=== PATIENT | female | born 1955 | race Caucasian/White ===

== ENCOUNTER 2018-01-08 09:25 | Emergency (ER) | payer OTHER ==
[~2018-01-08] VITALS: Ht 152.4 cm; Wt 81.6 kg
[~2018-01-08 09:25] MED LIST: KEFLEX500 MG PO; MOTRIN 600 MG600 MG PO; PERCOCET 325 MG1 TA2 PO; ULTRAM(MONOGRAP50 MG PO
[2018-01-08 10:25] LABS: ABSOLUTE BASOPHIL COUNT 0 /CUMM (0.0-0.2); ABSOLUTE EOSINOPHIL COUNT 0.1 /CUMM (0.0-0.7); ABSOLUTE GRANULOCYTE CT 4.1 /CUMM (1.4-6.5); ABSOLUTE LYMPH COUNT 2.3 /CUMM (1.2-3.4); ABSOLUTE MONOCYTE COUNT 0.7 /CUMM (0.10-0.60); BASOPHIL % 0.4 % (0.0-2.0); EOSINOPHIL % 1.8 % (0-5); GRANULOCYTE % 55.7 % (42.2-75.2); HEMATOCRIT 35.5 % (37-47); MEAN CORPUSCULAR HGB 30.3 PG (27.0-31.0); MEAN CORPUSCULAR HGB CONC 33.2 G/DL (33.0-37.0); MEAN CORPUSCULAR VOLUME 91.2 FL (81.0-99.0); PLATELET COUNT 218 /CUMM (130-400); RBC DISTRIBUTION WIDTH 12.5 % (11.5-14.5); RED BLOOD CELL CT 3.89 /CUMM (4.20-5.40); WHITE BLOOD CELL COUNT 7.3 /CUMM (4.8-10.8)
--- NOTE | 2018-01-08 10:46 | CT SCAN REPORT ---
EXAMINATION: CT LUMBAR SPINE WITHOUT CONTRAST CLINICAL INFORMATION: Low back pain with radiation to left leg, weakness COMPARISON: None TECHNIQUE: Helical non-contrast CT images were obtained through the lumbar spine and 1.25 and 2.5 mm axial reconstructions were reviewed along with sagittal and coronal MPRs. DLP: 721.5 mGy-cm FINDINGS: There is no acute osseous abnormality. Vertebral alignment is anatomic. Vertebral body heights are maintained. There are multilevel moderate degenerative changes with posterior disc bulges at L2-L3, L3-L4, L4-L5, and L5-S1. Mild multilevel facet arthropathy is noted. At L4-L5, there is moderate to severe spinal canal stenosis related to disc protrusion. Mild to moderate spinal stenosis noted at the other levels. The paraspinous soft tissues are unremarkable. Moderate diverticulosis of the sigmoid colon is present. IMPRESSION: No acute fracture or subluxation of the lumbar spine. Multilevel degenerative changes as above, notably with moderate to severe spinal canal stenosis at L4-L5 likely related to disc disease. This could be better evaluated with MRI. Sigmoid diverticulosis.
[2018-01-08 11:09] VITALS: BP 140/82
--- NOTE | 2018-01-08 11:20 | ED NECK/BACK PAIN COMPLAINT ---
History of Present Illness General Chief Complaint: Low Back Pain/Injury Stated Complaint: BACK PAIN RADIATING INTO L HIP/LEG Source: patient, family, old records Exam Limitations: no limitations Vital Signs & Intake/Output Vital Signs & Intake/Output Vital Signs Date Time Temp Pulse Resp B/P B/P Pulse O2 O2 Flow FiO2 Mean Ox Delivery Rate 01/08 1109 98.0 74 18 140/82 100 Room Air 01/08 1022 Room Air Room Air 01/08 0930 97.2 53 18 143/76 99 Room Air Allergies Coded Allergies: MDX - Itraconazole (From Sporanox) (Severe, RASH, HEADACHE 11/29/13) MDX - Terbinafine (From Lamisil) (Severe, METAL TASTE IN MOUTH 11/29/13) Reconcile Medications Cephalexin (Keflex) 500 MG CAP 1 CAP PO TID phlebitis Ibuprofen (Motrin 600 MG Tab) 600 MG TAB 1 TAB PO Q6P PRN PAIN OXYCODONE HCL/ACETAMINOPHEN (Percocet 5-325 MG Tablet) 325 MG/5 MG TAB 1-2 TAB PO Q4-6 PRN PRN PAIN Tramadol HCl (Ultram) 50 MG TAB 1-2 TAB PO Q6 PRN severe pain Triage Note: 62 Y/O FEMALE C/O LOW BACK PAIN (L SIDE) RADIATING DOWN L LEG X 1 WEEK WITH NO KNOWN INJURY OR TRAUMA. HAS BEEN TAKING OTC MEDS WITH NO RELIEF - LAST DOSE 800MG IBUPROPHEN 0730 AM. PT DECLINES OFFER OF W/C. DENIES URINARY SYMPTOMS Triage Nurses Notes Reviewed? yes Onset: Last week Duration: week(s):, constant, continues in ED, getting worse Timing: recent history Quality/Severity: severe, radiation, sharpness Location: lumbar spine, paraspinous muscles Radiation: buttocks, upper legs, lower legs Context: lifting, turning/bending Method of Injury: twisted Loss of Consciousness: no loss of consciousness Modifying Factors: immobilization, movement Associated Symptoms: lower back pain, muscle spasm LMP (ages 10-50): post menopausal : No Patient currently breastfeeds: No HPI: 10 days prior to admission patient recalls picking up twigs in the yard. 9 days prior to admission she complains of progressive sharp left low back pain radiating to her buttock and leg worse with movement turning bending no improvement with anti-inflammatory medication. She denies fever chills nausea vomiting diarrhea abdominal pain chest pain shortness breath headache dysuria rash bleeding change in motor sensory function change in bowel bladder habit. Past History Travel History Traveled to [place] past 21 day No Medical History Any Pertinent Medical History? see below for history Neurological: NONE EENT: NONE Cardiovascular: hypertension Respiratory: NONE Gastrointestinal: NONE Hepatic: NONE Renal: NONE Musculoskeletal: NONE Psychiatric: NONE Endocrine: diabetes, hypothyroidism Blood Disorders: NONE Cancer(s): NONE BOAT TENDER/Reproductive: NONE Surgical History Surgical History: non-contributory Psychosocial History What is your primary language Persian Tobacco Use: Never used Family History Hx Contributory? No Review of Systems Review of Systems Constitutional: Reports: no symptoms. Eyes: Reports: no symptoms. Ears, Nose, Throat, Mouth: Reports: no symptoms. Respiratory: Reports: no symptoms. Cardiovascular: Reports: no symptoms. Gastrointestinal/Abdominal: Reports: no symptoms. Musculoskeletal: Reports: see HPI, back pain. Skin: Reports: no symptoms. Neurological/Psychological: Reports: no symptoms. All Other Systems: Reviewed and Negative Physical Exam Physical Exam General Appearance: well developed/nourished, alert, awake, anxious, moderate distress, obese Head: atraumatic, normal appearance Eyes: Bilateral: normal appearance, PERRL, EOMI. Ears, Nose, Throat, Mouth: hearing grossly normal, moist mucous membrane Neck: normal inspection, supple, full range of motion, normal alignment, no midline tenderness Respiratory: normal breath sounds, chest non-tender, no respiratory distress, quiet respiration, lungs clear Cardiovascular: regular rate/rhythm, normal peripheral pulses, norml femoral pulses equa Peripheral Pulses: 4+ carotid (R), 4+ carotid (L) Gastrointestinal: normal bowel sounds, soft, non-tender, no organomegaly Back: normal inspection, normal range of motion, no vertebral tenderness Extremities: non-tender, normal range of motion, no ligament instability Straight Leg Raising: Right: Pain at ____ degrees (10). Left: Pain at ____ degrees (10). Sensory: Medial Le: L4R, L4L. Top of Foot: 2: L5R, L5L. Sole of Foot: 2: SIR, KRISTINA. Motor: Deficit L4 Right: No Deficit L4 Left: No Deficit L5 Right: No Deficit L5 Left: No Deficit S1 Right: No Deficit S1 Right: No DTR: Deficit L4 Left: No Deficit L4 Right: No Deficit S1 Left: No Deficit S1 Right: No Patellar: 3: L4 Right, L4 Left. Neurologic/Psych: no motor/sensory deficits, awake, alert, oriented x 3, normal gait, normal mood/affect, rn medication II-XII nml as tested Skin: intact, normal color, warm/dry Core Measures CVA/TIA Diagnosis: No Progress Differential Diagnosis: cauda equina syn, herniated disc, myofascial strain, sciatica Plan of Care: Orders Procedure Date/time Status Regular Diet 01/08 L Active URINALYSIS 01/08 943 Complete MAGNESIUM 01/08 943 Complete COMPREHENSIVE METABOLIC PANEL 01/08 943 Complete CBC WITHOUT DIFFERENTIAL 01/08 943 Complete Laboratory Tests 01/08/18 1003: Anion Gap 10, Estimated GFR > 60, BUN/Creatinine Ratio 27.5 H, Glucose 103 H, Calcium 9.3, Magnesium 1.8, Total Bilirubin 0.6, AST 36, ALT 35, Alkaline Phosphatase 86, Total Protein 6.9, Albumin 3.7, Globulin 3.2, Albumin/Globulin Ratio 1.2, CBC w Diff NO MAN DIFF REQ, RBC 3.89 L, MCV 91.2, MCH 30.3, MCHC 33.2, RDW 12.5, MPV 10.0, Gran % 55.7, Lymphocytes % 32.0, Monocytes % 10.1 H, Eosinophils % 1.8, Basophils % 0.4, Absolute Granulocytes 4.1, Absolute Lymphocytes 2.3, Absolute Monocytes 0.7 H, Absolute Eosinophils 0.1, Absolute Basophils 0, Urine Color YEL, Urine Clarity CLEAR, Urine pH 6.0, Ur Specific [place] <= 1.005, Urine Protein NEG, Urine Ketones NEG, Urine Nitrite NEG, Urine Bilirubin NEG, Urine Urobilinogen 0.2, Ur Leukocyte Esterase NEG, Ur Microscopic SEDIMENT EXAMINED, Urine RBC 1-3, Urine WBC RARE, Urine Hemoglobin MOD H, Urine Glucose NEG Diagnostic Imaging: Viewed by Me: CT Scan. Discussed w/RAD: CT Scan. Radiology Impression: No acute fracture or subluxation of the lumbar spine. Multilevel degenerative changes as above, notably with moderate to severe spinal canal stenosis at L4-L5 likely related to disc disease Departure Departure Time of Disposition: 1150 Disposition: HOME OR SELF CARE Condition: Stable Clinical Impression Primary Impression: Spinal stenosis of lumbar region with radiculopathy Secondary Impressions: Facet arthritis of lumbar region Referrals: Elle ANDRADE,Lavonne Jeronimo Call for neurosurgery follow up Olesya Felix APRN (PCP/Family) Parish ANDRADE,Teja Osborne Call for orthopedic follow up Departure Forms: Customer Survey General Discharge Information Prescriptions: Current Visit Scripts Cyclobenzaprine HCl 1 TAB PO TIDPRN PRN muscle spasm #30 TAB Oxycodone HCl/Acetaminophen (Percocet 5-325 MG Tablet) 1-2 TAB PO Q6P PRN severe pain #30 TAB Ibuprofen 1 TAB PO Q6P PRN pain #50 TAB with food Lidocaine (Lidoderm) 1 PAT TOP DAILY PRN pain #30 PAT may wear up to 12 hours Dexamethasone 4 TAB PO BID #10 TAB Famotidine (Pepcid) 1 TAB PO BID #10 TAB
[2018-01-08] MEDS ORDERED: PEPCID20 M1 PO (11:55)
[2018-01-08] MEDS ORDERED: PERCOCET 5-3251 EACH PO (11:55)
[2018-01-08] MEDS ORDERED: CYCLOBENZAPRINE10 M1 PO (11:55)
[2018-01-08] MEDS ORDERED: IBUPROFEN600 M1 PO (11:55)
[2018-01-08] MEDS ORDERED: DEXAMETHASONE4 M1 PO (11:55)
[2018-01-08] MEDS ORDERED: LIDODERM1 EACH TOP (11:55)
[2018-01-08] MEDS ORDERED: LEVOTHYROXINE100 MC1 PO (12:18)
[2018-01-08] MEDS ORDERED: METOPROLOL SUC100 M2 PO (12:18)
[2018-01-08] MEDS ORDERED: VALSARTAN-HCTZ1 EAC3 PO (12:19)
[2018-01-08] MEDS ORDERED: AMLODIPINE BES2.5 M1 PO (12:20)
[2018-01-08] MEDS ORDERED: BAYER WOMEN'S1 EACH PO (12:21)
[2018-01-08] MEDS ORDERED: METFORMIN HCL500 M4 PO (12:22)
== END 2018-01-08 12:42 ==
LOC: ERH 09:25
PROVIDERS: Emergency Medicine
DX: M48.061 Spinal stenosis, lumbar region without neurogenic claudication (principal); M54.10 Radiculopathy, site unspecified; M47.9 Spondylosis, unspecified; I10 Essential (primary) hypertension; E11.9 Type 2 diabetes mellitus without complications; E03.9 Hypothyroidism, unspecified
CPT/HCPCS: 81001; 96374; 96375; J1885

== ENCOUNTER 2018-02-14 06:28 | Emergency (ER) | payer OTHER ==
[~2018-02-14 06:28] MED LIST changes: +AMLODIPINE BES2.5 M1 PO; +BAYER WOMEN'S1 EACH PO; +CYCLOBENZAPRINE10 M1 PO; +DEXAMETHASONE4 M1 PO; +IBUPROFEN600 M1 PO; +LEVOTHYROXINE100 MC1 PO; +LIDODERM1 EACH TOP; +METFORMIN HCL500 M4 PO; +METOPROLOL SUC100 M2 PO; +PEPCID20 M1 PO; +PERCOCET 5-3251 EACH PO; +VALSARTAN-HCTZ1 EAC3 PO
[2018-02-14 06:48] VITALS: BP 139/78
--- NOTE | 2018-02-14 07:09 | ED NECK/BACK PAIN COMPLAINT ---
History of Present Illness General Chief Complaint: Low Back Pain/Injury Stated Complaint: PT C/C "SCIATIC PAIN" HX OF SAME Source: patient, family, old records Exam Limitations: no limitations Vital Signs & Intake/Output Vital Signs & Intake/Output Vital Signs Date Time Temp Pulse Resp B/P B/P Pulse O2 O2 Flow FiO2 Mean Ox Delivery Rate 02/14 0707 97 02/14 0648 60 20 139/78 96 Allergies Coded Allergies: itraconazole (From SPORANOX) (Severe, RASH, HEADACHE 02/14/18) terbinafine (From LAMISIL) (Severe, METAL TASTE IN MOUTH 02/14/18) Reconcile Medications Amlodipine Besylate 2.5 MG TABLET 1 TAB PO DAILY HTN (Reported) Aspirin/Calcium Carbonate (Mio Women's Aspirin Tablet) 81 MG-300 MG CALCIUM ( 777 MG) TABLET 1 TAB PO DAILY HEART HEALTH (Reported) Cephalexin (Keflex) 500 MG CAP 1 CAP PO TID phlebitis Cyclobenzaprine HCl 10 MG TABLET 1 TAB PO TIDPRN PRN muscle spasm Dexamethasone 4 MG TABLET 4 TAB PO BID disk disease Famotidine (Pepcid) 20 MG TABLET 1 TAB PO BID gi protection Ibuprofen (Motrin 600 MG Tab) 600 MG TAB 1 TAB PO Q6P PRN PAIN Ibuprofen 600 MG TABLET 1 TAB PO Q6P PRN pain with food Levothyroxine Sodium 100 MCG TABLET 1 TAB PO DAILY THYROID (Reported) Lidocaine (Lidoderm) 5 % ADH..PATCH 1 PAT TOP DAILY PRN pain may wear up to 12 hours Meloxicam 7.5 MG TABLET 1 TAB PO DAILY BACK PAIN Metformin HCl (Metformin HCl ER) 500 MG TAB.ER.24H 1 TAB PO DAILY DIABETES ( Reported) Metoprolol Succinate 100 MG TAB.ER.24H 1 TAB PO DAILY HTN (Reported) OXYCODONE HCL/ACETAMINOPHEN (Percocet 5-325 MG Tablet) 325 MG/5 MG TAB 1-2 TAB PO Q4-6 PRN PRN PAIN Oxycodone HCl/Acetaminophen (Percocet 5-325 MG Tablet) 5 MG-325 MG TABLET 1-2 TAB PO Q6P PRN severe pain Prednisone 10 MG TABLET 1 TAB PO DAILY SCIATICA TAKE 3 TABS FOR 3 DAYS THEN TAKE 2 TABS FOR 3 DAYS THEN TAKE 1 TAB FOR 3 DAYS Tramadol HCl (Ultram) 50 MG TAB 1-2 TAB PO Q6 PRN severe pain Valsartan/Hydrochlorothiazide (Valsartan-Hctz 320-25 MG Tab) 320 MG-25 MG TABLET 1 TAB PO DAILY HTN (Reported) Triage Note: PER PT HX OF HERNIATED DISC AND SCIATICA, IN PT X 3 WEEKS NOT GETTING BETTER NEED PAIN RELIEF Triage Nurses Notes Reviewed? yes HPI: Patient has a known herniated disc and is undergoing physical therapy for sciatica. Patient follows up with a neurosurgeon. Patient states that the pain worsened over the past week and last night she took 2 Percocet as well as Flexeril without any relief. Patient states the pain is all night. The pain is aching and throbbing in nature. The pain increases with movement. The pain radiates down her leg. There is no incontinence of bowel or bladder. There are no fevers or chills. There is no numbness or weakness. Patient states that she is going to call her surgeon tomorrow however she states that she cannot take the pain today. Past History Travel History Traveled to [place] past 21 day No Medical History Any Pertinent Medical History? see below for history Neurological: NONE EENT: NONE Cardiovascular: hypertension Respiratory: NONE Gastrointestinal: NONE Hepatic: NONE Renal: NONE Musculoskeletal: NONE Psychiatric: NONE Endocrine: diabetes, hypothyroidism Blood Disorders: NONE Cancer(s): NONE HOSPITAL [facility]/Reproductive: NONE Surgical History Surgical History: non-contributory Psychosocial History What is your primary language Arabic Tobacco Use: Never used ETOH Use: occasional use Illicit Drug Use: denies illicit drug use Family History Hx Contributory? No Review of Systems Review of Systems Constitutional: Reports: no symptoms. Musculoskeletal: Reports: see HPI, back pain. Neurological/Psychological: Reports: no symptoms. Physical Exam Physical Exam General Appearance: well developed/nourished, alert, awake, anxious, moderate distress Head: atraumatic, normal appearance Neck: normal inspection, supple, full range of motion Back: no vertebral tenderness Straight Leg Raising: Right: Negative. Left: Negative. Neurologic/Psych: no motor/sensory deficits, awake, alert, oriented x 3, normal gait, normal mood/affect Core Measures CVA/TIA Diagnosis: No Progress Differential Diagnosis: herniated disc, myofascial strain, sciatica Plan of Care: Current Medications Sig/Gregory Start time Last Medication Dose Stop Time Status Admin Ketorolac 60 MG ONCE ONE 02/14 715 UNVr Tromethamine 02/15 716 (Toradol) Prednisone 60 MG ONCE ONE 02/14 715 UNVr 02/15 716 Departure Departure Disposition: HOME OR SELF CARE Condition: Stable Clinical Impression Primary Impression: Sciatica of left side Referrals: Elle ANDRADE,Olesya Cooper APRN (PCP/Family) Additional Instructions: FOLLOW UP WITH DR. MONTES TAKE PREDNISONE DIRECTED. IT WILL RAISE YOUR BLOOD SUGAR SO FOLLOW THAT. TAKE MELOXICAM DAILY RETURN IF SYMPTOMS WORSEN OR FOR ANY CONCERNS Departure Forms: Customer Survey General Discharge Information Prescriptions: Current Visit Scripts Meloxicam 1 TAB PO DAILY #30 TAB Prednisone 1 TAB PO DAILY #18 TAB TAKE 3 TABS FOR 3 DAYS THEN TAKE 2 TABS FOR 3 DAYS THEN TAKE 1 TAB FOR 3 DAYS
[2018-02-14] MEDS ORDERED: MELOXICAM7.5 M1 PO (07:17)
[2018-02-14] MEDS ORDERED: PREDNISONE10 M2 PO (07:17)
== END 2018-02-14 07:27 ==
LOC: ERH 06:28
DX: M54.42 Lumbago with sciatica, left side (principal)
CPT/HCPCS: 96372; J1885